=== PATIENT | female | born 1990 | race Caucasian/White ===

== ENCOUNTER 2016-06-15 19:15 | Emergency (ER) | payer BC ==
[~2016-06-15] VITALS: Ht 170.2 cm; Wt 84.0 kg
[~2016-06-15 19:15] MED LIST: ACHYD1T PO; ETON68IM3 SQ; ONDA4TAB41 PO; OXYC1TAB87 PO; PRM25T PO
[2016-06-15 19:26] VITALS: BP 116/67
[2016-06-15] MEDS ORDERED: HYDROmorphone 1 MG/ML (DILAUDID) SYRINGE IV PRN (20:00)
[2016-06-15] MEDS ORDERED: ONDANSETRON 2 MG/ML (Z0FRAN) 2 ML VIAL IV ONE (20:00)
[2016-06-15] MEDS ORDERED: SODIUM CHLORIDE FLUSH 3 ML SYR IV PRN (20:00)
[2016-06-15] MEDS ORDERED: SODIUM CHLORIDE FLUSH 10 ML SYR IV PRN (20:00)
[2016-06-15 20:25] LABS: BASOPHILS % (AUTO) 0 % (0-2); EOSINOPHILS % (AUTO) 1 % (0-4); LYMPHOCYTES # (AUTO) 2.1 X10^3; MEAN CORPUSCULAR HEMOGLOBIN 29.7 PG (26.0-34.0); MEAN CORPUSCULAR VOLUME 82 FL (80-100); MEAN PLATELET VOLUME 8.8 FL (6.0-9.5); MONOCYTES # (AUTO) 0.4 X10^3; MONOCYTES % (AUTO) 5 % (3-11); NEUTROPHILS # (AUTO) 5.6 X10^3; NEUTROPHILS % (AUTO) 68 % (51-67); PLATELET COUNT 279 10^3uL (150-450); WHITE BLOOD COUNT 8.18 10^3uL (4.0-11.0)
[2016-06-15 20:30] LABS: BILIRUBIN,URINE Negative (Negative); CLARITY,URINE Clear; COLOR,URINE Yellow; GLUCOSE, URINE (UA) Negative (Negative); LEUKOCYTE ESTERASE ,URINE Negative (Negative); UROBILINOGEN,URINE 0.2 mg/dL (0.2-1.0)
[2016-06-15 20:32] LABS: HCG,QUALITATIVE URINE Negative (Negative)
[2016-06-15 20:35] LABS: ALBUMIN 4.4 g/dL (3.4-5.0); CALCULATED IONIZED CALCIUM 4.1 mg/dL (3.8-4.6); TOTAL PROTEIN 6.9 g/dL (6.4-8.5)
[2016-06-15 20:39] LABS: MEAN CORPUSCULAR HGB CONC 36.1 g/dL (31.0-37.0)
[2016-06-15 20:41] LABS: ANION GAP 15.3 MEQ/L (3-15)
--- NOTE | 2016-06-15 20:41 | NUR ---
NOW RATES PAIN LEVEL AT "6" AND SAYS PAIN "NOT CRAMPING" MUCH IT WAS. DENIES NAUSEA. CONTINUES TO DRINK WATER TO FILL BLADDER FOR PENDING ABD SONOGRAM.
[2016-06-15] MEDS ORDERED: ED- HYDROcodone/ACETAMINOPHEN 5MG/325MG (NORCO) 6 TABLETS/BTL PO ONE (21:25)
[2016-06-15] MEDS ORDERED: HYDROmorphone 1 MG/ML (DILAUDID) SYRINGE IV ONE (21:25)
[2016-06-15] MEDS ORDERED: HYDR-3702 PO (21:25)
--- NOTE | 2016-06-16 08:35 | Diagnostic Imaging Report ---
INDICATION: Right lower quadrant pain. Pelvic sonography performed in the routine fashion with transabdominal and transvaginal views. The uterus measures 6.8 x 2.9 x 4.9 cm. Endometrium measures 6 to 7 mm in diameter. There is no uterine mass. The right ovary measures 2.7 x 1.2 x 1.6 cm. The right ovary shows normal color flow with no focal lesions. The left ovary measures 4.4 x 3.0 x 3.0 cm. Left ovary contains color flow. There is a complex septated cyst in the left ovary measuring 3.2 x 3.0 cm. There is no free fluid. IMPRESSION: Complex septated cyst in the left ovary measuring 3.2 cm in greatest diameter. There is color flow to both ovaries. There is no uterine lesion. Dictated by: Dictated on workstation # [id number]
[2016-07-25] MEDS ORDERED: DESO1TAB54 PO (20:28)
[2016-07-25] MEDS ORDERED: ACET325T38 PO (20:28)
[2016-07-25] MEDS ORDERED: MULT-954 PO (20:28)
[2016-07-25] MEDS ORDERED: ACET-273 PO (20:28)
[2016-07-25] MEDS ORDERED: NAPR550T PO (23:04)
== END 2016-06-15 21:51 | disposition home or self-care (01) ==
LOC: ED 19:17
DX: N83.292 Other ovarian cyst, left side (principal)
CPT/HCPCS: 36415; 76830; 76856; 80053; 81003; 81025; 82150; 83690; 85025; 96361; 96374; 96375; 96376; 99284; J1170; J2405; J7030; 99283

== ENCOUNTER 2016-07-15 09:56 | Outpatient (RCR) | payer BC | END 2016-08-14 15:53 | disposition home or self-care (01) | LOC: PT 09:56 | PROVIDERS: ATTEND Obstetrics & Gynecology | DX: R10.2 Pelvic and perineal pain (principal); N83.12 Corpus luteum cyst of left ovary ==

== ENCOUNTER 2016-07-25 20:11 | Emergency (ER) | payer BC ==
[~2016-07-25] VITALS: Ht 170.2 cm; Wt 86.2 kg
[2016-07-25] MEDS ORDERED: KETOROLAC 30 MG/ML (TORADOL) 1 ML VIAL IV ONE (21:10)
[2016-07-25] MEDS ORDERED: LORazepam 2 MG/ML (ATIVAN) 1 ML VIAL IV ONE (21:10)
[2016-07-25] MEDS ORDERED: SODIUM CHLORIDE FLUSH 3 ML SYR IV ONE (21:15)
[2016-07-25] MEDS ORDERED: SODIUM CHLORIDE FLUSH 10 ML SYR IV PRN (21:15)
[2016-07-25 21:28] LABS: BASOPHILS % (AUTO) 0 % (0-2); EOSINOPHILS # (AUTO) 0.1 10^3uL; EOSINOPHILS % (AUTO) 1 % (0-4); LYMPHOCYTES # (AUTO) 2.7 X10^3; MEAN CORPUSCULAR HEMOGLOBIN 30.2 PG (26.0-34.0); MEAN CORPUSCULAR VOLUME 83 FL (80-100); MEAN PLATELET VOLUME 8.9 FL (6.0-9.5); MONOCYTES # (AUTO) 0.4 X10^3; MONOCYTES % (AUTO) 7 % (3-11); NEUTROPHILS # (AUTO) 3.6 X10^3; NEUTROPHILS % (AUTO) 52 % (51-67); PLATELET COUNT 268 10^3uL (150-450); WHITE BLOOD COUNT 6.82 10^3uL (4.0-11.0)
[2016-07-25 21:39] LABS: MEAN CORPUSCULAR HGB CONC 36.5 g/dL (31.0-37.0)
[2016-07-25 21:46] LABS: ALBUMIN 4.3 g/dL (3.4-5.0); ALKALINE PHOSPHATASE 50 U/L (38-126); ANION GAP 15.7 MEQ/L (3-15); BUN/CREATININE RATIO 21 (10-20); LIPASE* 92 U/L (23-300); TOTAL PROTEIN 7.3 g/dL (6.4-8.5)
--- NOTE | 2016-07-25 21:50 | NUR ---
CHECK ON PT AND SHE WAS SLEEPING. DID NOT AWAKEN HER
[2016-07-25] MEDS ORDERED: diphenhydrAMINE 50 MG/ML INJ (BENADRYL) IV ONE (22:15)
[2016-07-25] MEDS ORDERED: HYDROmorphone 1 MG/ML (DILAUDID) SYRINGE IV ONE (22:15)
[2016-07-25 23:29] VITALS: BP 121/80
== END 2016-07-25 23:29 | disposition home or self-care (01) ==
LOC: ED 20:14
DX: N93.8 Other specified abnormal uterine and vaginal bleeding (principal)
CPT/HCPCS: 36415; 80053; 83690; 84702; 85025; 96361; 96374; 96375; 99283; J1170; J1200; J1885; J2060; J7030

== ENCOUNTER 2016-11-09 21:40 | Emergency (ER) | payer BC ==
[~2016-11-09] VITALS: Ht 170.2 cm; Wt 81.4 kg
[~2016-11-09 21:40] MED LIST changes: +ACET-273 PO; +ACET325T38 PO; +DESO1TAB54 PO; +HYDR-3702 PO; +MULT-954 PO; +NAPR550T PO
[2016-11-09] MEDS ORDERED: ONDANSETRON 2 MG/ML (Z0FRAN) 2 ML VIAL IV ONE (22:05)
[2016-11-09] MEDS ORDERED: SODIUM CHLORIDE FLUSH 3 ML SYR IV ONE (22:05)
[2016-11-09] MEDS ORDERED: KETOROLAC 30 MG/ML (TORADOL) 1 ML VIAL IV ONE (22:05)
[2016-11-09] MEDS ORDERED: SODIUM CHLORIDE FLUSH 10 ML SYR IV PRN (22:05)
--- NOTE | 2016-11-09 22:09 | NUR ---
PT UNABLE TO LEAVE URINE AT THIS TIME. CALL LIGHT GIVEN AND ADVISED TO CALL IF PT FEELS THE URGE TO URINATE
[2016-11-09 22:23] LABS: BASOPHILS % (AUTO) 0 % (0-2); EOSINOPHILS % (AUTO) 0 % (0-4); LYMPHOCYTES # (AUTO) 3.2 X10^3; MEAN CORPUSCULAR HEMOGLOBIN 29.3 PG (26.0-34.0); MEAN CORPUSCULAR VOLUME 82 FL (80-100); MEAN PLATELET VOLUME 9.2 FL (6.0-9.5); MONOCYTES # (AUTO) 0.6 X10^3; MONOCYTES % (AUTO) 6 % (3-11); NEUTROPHILS # (AUTO) 6.7 X10^3; NEUTROPHILS % (AUTO) 63 % (51-67); PLATELET COUNT 289 10^3uL (150-450); WHITE BLOOD COUNT 10.57 10^3uL (4.0-11.0)
[2016-11-09 22:26] LABS: MEAN CORPUSCULAR HGB CONC 35.6 g/dL (31.0-37.0)
--- NOTE | 2016-11-09 22:27 | NUR ---
pt having emesis, 2nd episode since arrival.
[2016-11-09 22:28] LABS: ALBUMIN 4.4 g/dL (3.4-5.0); ALKALINE PHOSPHATASE 42 U/L (38-126); ANION GAP 14.7 MEQ/L (3-15); BUN/CREATININE RATIO 17 (10-20); CREATINE KINASE 180 U/L (30-135); TOTAL PROTEIN 7.5 g/dL (6.4-8.5)
[2016-11-09] MEDS ORDERED: PROMETHAZINE HCL INJ 12.5 MG in SODIUM CHLORIDE 25 ML IV ONE (22:55)
[2016-11-09] MEDS ORDERED: LORazepam 2 MG/ML (ATIVAN) 1 ML VIAL IV ONE (22:55)
[2016-11-09] MEDS ORDERED: fentaNYL 100 MCG/2 ML VIAL IV ONE (22:55)
[2016-11-09 23:10] LABS: BILIRUBIN,URINE Negative (Negative); CLARITY,URINE Clear; COLOR,URINE Yellow; GLUCOSE, URINE (UA) Negative (Negative); LEUKOCYTE ESTERASE ,URINE Negative (Negative); PH,URINE 6.5 (5.0 - 8.0); UROBILINOGEN,URINE 0.2 mg/dL (0.2-1.0)
--- NOTE | 2016-11-09 23:24 | NUR ---
PT TO CT
[2016-11-09 23:29] LABS: AMPHETAMINE SCREEN, URINE Negative (Negative); CANNABINOID SCREEN, URINE Negative (Negative); METHAMPHETAMINE SCREEN URINE S NEGATIVE (NEGATIVE); OPIATE SCREEN URINE Negative (Negative); PROPOXYPHENE STAT NEGATIVE (NEGATIVE)
--- NOTE | 2016-11-10 00:19 | NUR ---
checked on pt, she reports her pain is at a 7 right now to her chest, Dr. Méndez notified.
[2016-11-10] MEDS ORDERED: LIDOCAINE 2% VISCOUS 20ML UDC PO ONE (00:42)
[2016-11-10] MEDS ORDERED: MAG HYDROX/AL HYDROX/SIMETH 400-400-40/5 ML (MAG-AL PLUS XS) 30 ML UDC ONE (00:42)
[2016-11-10] MEDS ORDERED: BELLADONNA/PHENOBARBITAL ELIXIR (DONNATAL) 10 ML UDC ONE (00:42)
[2016-11-10] MEDS ORDERED: GI COCKTAIL 55 ML UDC PO ONE (00:45)
[2016-11-10] MEDS ORDERED: ED- HYDROcodone/ACETAMINOPHEN 5MG/325MG (NORCO) 6 TABLETS/BTL PO ONE (01:05)
[2016-11-10] MEDS ORDERED: ED- PROMETHAZINE 25 MG (PHENERGAN) 10 TABLETS/BTL PO ONE (01:05)
[2016-11-10] MEDS ORDERED: PROMETHAZINE HCL INJ 12.5 MG in SODIUM CHLORIDE 25 ML IV ONE (01:10)
[2016-11-10 01:41] VITALS: BP 126/73
--- NOTE | 2016-11-10 07:04 | Diagnostic Imaging Report ---
PROCEDURE: CT angiography of the chest with contrast. TECHNIQUE: Multiple contiguous axial images were obtained through the chest after uneventful bolus administration of intravenous contrast. Reconstructed CTA MIP acquisitions were also performed. INDICATION: Chest pain, shortness of breath, elevated d-dimer The lungs are clear. There are no effusions or pneumothoraces. There is no hilar or mediastinal lymphadenopathy. Aorta is normal. There are no pulmonary emboli. IMPRESSION: Negative CTA chest Dictated by: Dictated on workstation # [id number]
--- NOTE | 2016-11-10 07:27 | Diagnostic Imaging Report ---
INDICATION: Chest pain. Portable chest 10:13 PM FINDINGS: Heart size and pulmonary vascularity are normal. Lungs are clear. There are no effusions or pneumothoraces. Patient has had prior internal fixation of left clavicle. IMPRESSION: No acute abnormalities in the chest. Dictated by: Dictated on workstation # [id number]
== END 2016-11-10 01:42 | disposition home or self-care (01) ==
LOC: ED 21:41
DX: M94.0 Chondrocostal junction syndrome [Tietze] (principal); R07.89 Other chest pain; R11.10 Vomiting, unspecified; I10 Essential (primary) hypertension; Z87.891 Personal history of nicotine dependence
CPT/HCPCS: 36415; 71010; 71275; 80053; 80307; 80320; 81003; 82550; 82553; 83880; 84443; 84484; 84703; 85025; 85379; 85610; 86140; 93005; 96361; 96365; 96375; 99285; J1885; J2060; J2405; J2550; J3010; J7030; Q9967; 93010